=== PATIENT | female | born 1930 | race Caucasian/White ===

== ENCOUNTER 2017-06-25 16:10 | Emergency (ER) | payer MEDICARE, OTHER ==
[~2017-06-25] VITALS: Ht 157.5 cm; Wt 72.6 kg
[2017-06-25] MEDS ORDERED: Bystolic10 MG PO (16:38)
[2017-06-25] MEDS ORDERED: Amaryl4 MG PO (16:39)
[2017-06-25] MEDS ORDERED: Crestor40 MG PO (16:39)
[2017-06-25] MEDS ORDERED: CILO100 PO (16:39)
[2017-06-25] MEDS ORDERED: Omeprazole20 M1 PO (16:40)
[2017-06-25] MEDS ORDERED: RAME8 PO (16:40)
[2017-06-25] MEDS ORDERED: AMLO10 PO (16:41)
[2017-06-25] MEDS ORDERED: INSULANPEN SC (16:41)
[2017-06-25] MEDS ORDERED: FURO20 PO (16:42)
[2017-06-25] MEDS ORDERED: Calcium + Vita1 EACH PO (16:42)
[2017-06-25] MEDS ORDERED: INVOKANA100 MG PO (16:42)
[2017-06-25] MEDS ORDERED: ASPI81CH PO (16:43)
[2017-06-25] MEDS ORDERED: ASCO500 PO (16:43)
[2017-06-25] MEDS ORDERED: Omega 3 1,0001 EACH PO (16:44)
[2017-06-25] MEDS ORDERED: Hair, Skin & N1 EACH PO (16:44)
[2017-06-25] MEDS ORDERED: FERSU220EL PO (16:45)
[2017-06-25] MEDS ORDERED: ERGO400 PO (16:46)
[2017-06-25 17:03] LABS: BASOPHILS ABSOLUTE AUTO 0.01 K/mm3 (0.00-0.23); BASOPHILS PERCENT AUTO 0 % (0-2); EOSINOPHILS PERCENT AUTO 5 % (0-6); Hematocrit 43.3 % (33.0-51.0); Hemoglobin 14.2 g/dL (11.5-16.0); IMMATURE GRAN ABSOLUTE AUTO 0.03 K/mm3 (0.00-0.10); IMMATURE GRAN PERCENT AUTO 1 % (0-1); LYMPHOCYTES ABSOLUTE AUTO 0.75 K/mm3 (0.84-5.20); LYMPHOCYTES PERCENT AUTO 17 % (21-46); MONOCYTES ABSOLUTE AUTO 0.47 K/mm3 (0.16-1.47); MONOCYTES PERCENT AUTO 11 % (4-13); Mean Corpuscular HGB 29.6 pg (26.0-34.0); Mean Corpuscular HGB Conc 32.8 g/dL (31.5-36.5); Mean Corpuscular Volume 90 fL (80-100); Mean Platelet Volume 10.2 fL (9.1-12.4); NEUTROPHILS ABSOLUTE AUTO 2.99 K/mm3 (1.96-9.15); NEUTROPHILS PERCENT AUTO 67 % (41-73); Platelet Count 114 K/mm3 (150-400); RDW Coefficient Variation 13.8 % (11.7-14.2); RDW Standard Deviation 46.1 fL (35.1-46.3); White Blood Cell Count 4.45 K/mm3 (4.00-11.30)
[2017-06-25 17:18] LABS: Source, Urine Clean Catch
[2017-06-25 17:21] LABS: Appearance, Urine Clear (Clear); Bilirubin, Urine Neg (Neg); Blood, Urine 1+ (Neg); Color, Urine Yellow (P-Yellow); Glucose Qualitative, Urine 2+ (Neg); Ketones, Urine Neg (Neg); Leukocyte Esterase, Urine Neg (Neg); Nitrite, Urine Neg (Neg); Protein, Urine 1+ (Neg); Urobilinogen, Urine NORM (Normal)
[2017-06-25 17:24] LABS: Alanine Aminotransfer (ALT/SGP 26 U/L (12-78); Albumin, Blood 3.1 g/dL (3.4-5.0); Albumin/Globulin Ratio 0.9 (0.8-1.8); Alk Phos 82 U/L (50-136); Anion Gap 11 mmol/L (6-16); Aspartate Aminotrans (AST/SGOT 28 U/L (12-37); Bilirubin, Total 0.7 mg/dL (0.1-1.0); Blood Urea Nitrogen 31 mg/dL (8-24); Bun/Creatinine Ratio 15.7 (12.0-20.0); CO2, Blood 23 mmol/L (21-32); Calcium, Blood 9.3 mg/dL (8.5-10.1); Chloride, Blood 100 mmol/L (98-108); Creatinine, Blood 1.97 mg/dL (0.40-1.00); Globulin, Blood 3.6 g/dL (2.2-4.0); Glomerular Filtration Rate 26 (60-); Glucose, Blood 84 mg/dL (70-99); Potassium, Blood 3.9 mmol/L (3.5-5.5); Sodium, Blood 134 mmol/L (136-145); Total Protein, Blood 6.7 g/dL (6.4-8.2); Troponin I <0.015 ng/mL (0.000-0.040)
[2017-06-25 17:39] LABS: Bacteria Few /hpf; Red Blood Cells, Urine 0-2 /hpf (0-2); Squamous Epithelial Cells Rare /hpf (Few); White Blood Cells, Urine 0-2 /hpf (0-5)
[2017-06-25 17:41] LABS: Influenza A Negative (NEGATIVE); Influenza B Negative (NEGATIVE)
[2017-06-25] MEDS ORDERED: LEVFLO500 PO (19:03)
[2018-04-22] MEDS ORDERED: CALCIUM + D3 E1 EACH PO (16:03)
[2018-04-22] MEDS ORDERED: Crestor40 MG PO (16:03)
[2018-04-22] MEDS ORDERED: CILO100 PO (16:03)
[2018-04-22] MEDS ORDERED: Flonase 0.05% N16 GM (16:04)
[2018-04-22] MEDS ORDERED: INVOKANA100 MG PO (16:04)
[2018-04-22] MEDS ORDERED: INSULANPEN SC (16:05)
[2018-04-22] MEDS ORDERED: Omeprazole20 M1 PO ×2 (16:05)
[2018-04-22] MEDS ORDERED: OMEG1CAP30 PO (16:06)
[2018-04-22] MEDS ORDERED: Fruity C250 MG PO (16:06)
[2018-04-22] MEDS ORDERED: RAME8 PO (16:06)
[2018-04-22] MEDS ORDERED: Vitamin D2000 UNIT PO (16:07)
[2018-04-22] MEDS ORDERED: LOSA50 PO (16:07)
[2018-04-22] MEDS ORDERED: FERROUS SULFAT140 MG PO (16:07)
[2018-04-22] MEDS ORDERED: METO25 PO (16:08)
[2018-04-22] MEDS ORDERED: AMLO10 PO (16:08)
[2018-04-22] MEDS ORDERED: ELIQUIS5 MG PO (16:08)
== END 2017-06-25 19:29 | disposition home or self-care (01) ==
LOC: ER 16:10
PROVIDERS: Emergency Medicine; Psychiatry & Neurology Psychiatry
DX: J18.9 Pneumonia, unspecified organism (principal); E11.9 Type 2 diabetes mellitus without complications; Z87.891 Personal history of nicotine dependence; Z88.5 Allergy status to narcotic agent; Z79.899 Other long term (current) drug therapy; Z79.4 Long term (current) use of insulin; Z79.82 Long term (current) use of aspirin
CPT/HCPCS: 36415; 71046; 80053; 81001; 82947; 84484; 85025; 87804; 93005; 93010; 99284

== ENCOUNTER 2017-06-29 10:45 | Inpatient (IN) | payer MEDICARE, OTHER ==
[~2017-06-29] VITALS: Ht 157.5 cm; Wt 73.6 kg
[~2017-06-29 10:45] MED LIST: AMLO10 PO; ASCO500 PO; ASPI81CH PO; Amaryl4 MG PO; Bystolic10 MG PO; CILO100 PO; Calcium + Vita1 EACH PO; Crestor40 MG PO; ERGO400 PO; FERSU220EL PO; FURO20 PO; Hair, Skin & N1 EACH PO; INSULANPEN SC; INVOKANA100 MG PO; LEVFLO500 PO; Omega 3 1,0001 EACH PO; Omeprazole20 M1 PO; RAME8 PO
[2017-06-29 11:32] LABS: BASOPHILS ABSOLUTE AUTO 0.02 K/mm3 (0.00-0.23); BASOPHILS PERCENT AUTO 1 % (0-2); EOSINOPHILS ABSOLUTE AUTO 0.05 K/mm3 (0.00-0.68); EOSINOPHILS PERCENT AUTO 1 % (0-6); Hematocrit 48.4 % (33.0-51.0); Hemoglobin 16.3 g/dL (11.5-16.0); IMMATURE GRAN ABSOLUTE AUTO 0.03 K/mm3 (0.00-0.10); IMMATURE GRAN PERCENT AUTO 1 % (0-1); LYMPHOCYTES ABSOLUTE AUTO 0.97 K/mm3 (0.84-5.20); LYMPHOCYTES PERCENT AUTO 26 % (21-46); MONOCYTES ABSOLUTE AUTO 0.36 K/mm3 (0.16-1.47); MONOCYTES PERCENT AUTO 10 % (4-13); Mean Corpuscular HGB Conc 33.7 g/dL (31.5-36.5); Mean Corpuscular Volume 89 fL (80-100); Mean Platelet Volume 13.1 fL (9.1-12.4); NEUTROPHILS ABSOLUTE AUTO 2.32 K/mm3 (1.96-9.15); NEUTROPHILS PERCENT AUTO 62 % (41-73); RDW Coefficient Variation 14.1 % (11.7-14.2); RDW Standard Deviation 46.1 fL (35.1-46.3); Red Blood Cell Count 5.44 M/mm3 (3.80-5.20); White Blood Cell Count 3.75 K/mm3 (4.00-11.30)
[2017-06-29 11:34] LABS: Source, Urine Voided
[2017-06-29 11:41] LABS: Platelet Count 33 K/mm3 (150-400)
[2017-06-29 11:46] LABS: Bilirubin, Urine Neg (Neg); Blood, Urine 1+ (Neg); Glucose Qualitative, Urine 2+ (Neg); Ketones, Urine Neg (Neg); Leukocyte Esterase, Urine Neg (Neg); Nitrite, Urine Neg (Neg); Protein, Urine 2+ (Neg); Urobilinogen, Urine NORM (Normal)
[2017-06-29 11:46] LABS: Albumin, Blood 2.5 g/dL (3.4-5.0); Albumin/Globulin Ratio 0.7 (0.8-1.8); Bilirubin, Total 0.6 mg/dL (0.1-1.0); Calcium, Blood 8.1 mg/dL (8.5-10.1); Creatinine, Blood 2.5 mg/dL (0.40-1.00); Free Thyroxine 0.83 ng/dL (0.70-1.60); Globulin, Blood 3.5 g/dL (2.2-4.0); Magnesium, Blood 2.1 mg/dL (1.6-2.4); Potassium, Blood 4.4 mmol/L (3.5-5.5)
[2017-06-29 11:49] LABS: Thyroid Stimulating Hormone 1.98 uIU/mL (0.360-4.800)
[2017-06-29 11:58] LABS: Appearance, Urine Clear (Clear); Color, Urine Yellow (P-Yellow)
[2017-06-29 11:59] LABS: Amorphous Light (0-Heavy); White Blood Cells, Urine 0-2 /hpf (0-5)
[2017-06-29 12:00] LABS: Bacteria Few /hpf; Squamous Epithelial Cells Few /hpf (Few)
[2017-06-29] MEDS ORDERED: HYDCHL12.5 PO (13:50)
[2017-06-29] MEDS ORDERED: LOSARTAN POTAS100 MG PO (13:52)
[2017-06-29] MEDS ORDERED: Bactrim 400-801 EACH PO (13:54)
[2017-06-29 14:19] LABS: BASOPHILS ABSOLUTE AUTO 0.02 K/mm3 (0.00-0.23); BASOPHILS PERCENT AUTO 1 % (0-2); EOSINOPHILS ABSOLUTE AUTO 0.05 K/mm3 (0.00-0.68); EOSINOPHILS PERCENT AUTO 2 % (0-6); Hematocrit 46.5 % (33.0-51.0); IMMATURE GRAN ABSOLUTE AUTO 0.02 K/mm3 (0.00-0.10); IMMATURE GRAN PERCENT AUTO 1 % (0-1); LYMPHOCYTES ABSOLUTE AUTO 0.78 K/mm3 (0.84-5.20); LYMPHOCYTES PERCENT AUTO 25 % (21-46); MONOCYTES ABSOLUTE AUTO 0.26 K/mm3 (0.16-1.47); MONOCYTES PERCENT AUTO 9 % (4-13); Mean Corpuscular HGB Conc 34.4 g/dL (31.5-36.5); Mean Corpuscular Volume 87 fL (80-100); NEUTROPHILS ABSOLUTE AUTO 1.94 K/mm3 (1.96-9.15); NEUTROPHILS PERCENT AUTO 63 % (41-73); RDW Coefficient Variation 13.9 % (11.7-14.2); RDW Standard Deviation 44.1 fL (35.1-46.3); Red Blood Cell Count 5.33 M/mm3 (3.80-5.20); White Blood Cell Count 3.07 K/mm3 (4.00-11.30)
[2017-06-29 14:28] LABS: Platelet Count 33 K/mm3 (150-400)
[2017-06-29 16:15] LABS: Adenovirus Not Detected (NOT DETECT); Bordetella pertussis Not Detected (NOT DETECT); Chlamydophila pneumoniae Not Detected (NOT DETECT); Coronavirus 229E Not Detected (NOT DETECT); Coronavirus HKU1 Not Detected (NOT DETECT); Coronavirus NL63 Not Detected (NOT DETECT); Coronavirus OC43 Not Detected (NOT DETECT); Human Metapneumovirus Not Detected (NOT DETECT); Human Rhinovirus/Enterovirus Not Detected (NOT DETECT); Influenza A/2009-H1 Not Detected (NOT DETECT); Influenza A/H1 Not Detected (NOT DETECT); Influenza A/H3 Not Detected (NOT DETECT); Influenza B Not Detected (NOT DETECT); Mycoplasma pneumoniae Not Detected (NOT DETECT); Parainfluenza Virus 1 Not Detected (NOT DETECT); Parainfluenza Virus 2 Not Detected (NOT DETECT); Parainfluenza Virus 3 Not Detected (NOT DETECT); Parainfluenza Virus 4 Not Detected (NOT DETECT); Respiratory Syncytial Virus Not Detected (NOT DETECT)
[2017-06-29 16:58] LABS: Influenza A Negative (NEGATIVE); Influenza B Negative (NEGATIVE)
[2017-06-29 18:09] LABS: Influenza A Not Detected (NOT DETECT)
[2017-06-30 05:25] LABS: BASOPHILS ABSOLUTE AUTO 0.02 K/mm3 (0.00-0.23); BASOPHILS PERCENT AUTO 1 % (0-2); EOSINOPHILS ABSOLUTE AUTO 0.08 K/mm3 (0.00-0.68); EOSINOPHILS PERCENT AUTO 3 % (0-6); Hematocrit 42.6 % (33.0-51.0); Hemoglobin 14.3 g/dL (11.5-16.0); IMMATURE GRAN ABSOLUTE AUTO 0.02 K/mm3 (0.00-0.10); IMMATURE GRAN PERCENT AUTO 1 % (0-1); LYMPHOCYTES ABSOLUTE AUTO 0.67 K/mm3 (0.84-5.20); LYMPHOCYTES PERCENT AUTO 29 % (21-46); MONOCYTES ABSOLUTE AUTO 0.27 K/mm3 (0.16-1.47); MONOCYTES PERCENT AUTO 12 % (4-13); Mean Corpuscular HGB 29.7 pg (26.0-34.0); Mean Corpuscular HGB Conc 33.6 g/dL (31.5-36.5); Mean Corpuscular Volume 89 fL (80-100); NEUTROPHILS ABSOLUTE AUTO 1.29 K/mm3 (1.96-9.15); NEUTROPHILS PERCENT AUTO 55 % (41-73); RDW Coefficient Variation 14.1 % (11.7-14.2); RDW Standard Deviation 46.2 fL (35.1-46.3); Red Blood Cell Count 4.81 M/mm3 (3.80-5.20); White Blood Cell Count 2.35 K/mm3 (4.00-11.30)
[2017-06-30 05:30] LABS: Platelet Count 28 K/mm3 (150-400)
[2017-06-30 05:39] LABS: Albumin/Globulin Ratio 0.7 (0.8-1.8); Bilirubin, Total 0.6 mg/dL (0.1-1.0); Calcium, Blood 7.6 mg/dL (8.5-10.1); Creatinine, Blood 2.15 mg/dL (0.40-1.00); Globulin, Blood 2.9 g/dL (2.2-4.0); Potassium, Blood 4.1 mmol/L (3.5-5.5); Total Protein, Blood 4.9 g/dL (6.4-8.2)
[2017-07-01 05:05] LABS: Hematocrit 38.8 % (33.0-51.0); Hemoglobin 12.7 g/dL (11.5-16.0); Mean Corpuscular HGB 29.3 pg (26.0-34.0); Mean Corpuscular HGB Conc 32.7 g/dL (31.5-36.5); Mean Corpuscular Volume 90 fL (80-100); Mean Platelet Volume 12.2 fL (9.1-12.4); RDW Coefficient Variation 14.2 % (11.7-14.2); RDW Standard Deviation 47.4 fL (35.1-46.3); Red Blood Cell Count 4.33 M/mm3 (3.80-5.20); White Blood Cell Count 2.44 K/mm3 (4.00-11.30)
[2017-07-01 05:19] LABS: Anion Gap 11 mmol/L (6-16); Blood Urea Nitrogen 45 mg/dL (8-24); Bun/Creatinine Ratio 25.3 (12.0-20.0); CO2, Blood 18 mmol/L (21-32); Calcium, Blood 7.8 mg/dL (8.5-10.1); Chloride, Blood 112 mmol/L (98-108); Creatinine, Blood 1.78 mg/dL (0.40-1.00); Glomerular Filtration Rate 29 (60-); Glucose, Blood 134 mg/dL (70-99); Magnesium, Blood 2.2 mg/dL (1.6-2.4); Phosphorus, Blood 2.1 mg/dL (2.5-4.9); Potassium, Blood 3.7 mmol/L (3.5-5.5); Sodium, Blood 141 mmol/L (136-145)
[2017-07-01 05:30] LABS: Platelet Count 43 K/mm3 (150-400)
[2017-07-01 06:16] LABS: BAND PERCENT MAN 1 % (0-8); BASOPHILS PERCENT MAN 0 % (0-2); EOSINOPHILS ABSOLUTE MAN 0.12 K/mm3 (0.00-0.68); EOSINOPHILS PERCENT MAN 5 % (0-6); LYMPHOCYTES % ATYPICAL MANUAL 2 % (0-0); LYMPHOCYTES ABSOLUTE MAN 0.87 K/mm3 (0.84-5.20); LYMPHOCYTES PERCENT MAN 34 % (21-46); MONOCYTES ABSOLUTE MAN 0.24 K/mm3 (0.16-1.47); MONOCYTES PERCENT MAN 10 % (4-13); NEUTROPHILS ABSOLUTE MAN 1.19 K/mm3 (1.96-9.15); SEG NEUTROPHILS PERCENT MAN 48 % (41-73); TOTAL CELLS COUNTED 100
[2017-07-02 05:16] LABS: BASOPHILS ABSOLUTE AUTO 0.01 K/mm3 (0.00-0.23); BASOPHILS PERCENT AUTO 0 % (0-2); EOSINOPHILS ABSOLUTE AUTO 0.05 K/mm3 (0.00-0.68); EOSINOPHILS PERCENT AUTO 2 % (0-6); Hematocrit 38.8 % (33.0-51.0); Hemoglobin 12.7 g/dL (11.5-16.0); IMMATURE GRAN ABSOLUTE AUTO 0.03 K/mm3 (0.00-0.10); IMMATURE GRAN PERCENT AUTO 1 % (0-1); LYMPHOCYTES ABSOLUTE AUTO 1.26 K/mm3 (0.84-5.20); LYMPHOCYTES PERCENT AUTO 46 % (21-46); MONOCYTES ABSOLUTE AUTO 0.34 K/mm3 (0.16-1.47); MONOCYTES PERCENT AUTO 12 % (4-13); Mean Corpuscular HGB 29.1 pg (26.0-34.0); Mean Corpuscular HGB Conc 32.7 g/dL (31.5-36.5); Mean Corpuscular Volume 89 fL (80-100); Mean Platelet Volume 11.2 fL (9.1-12.4); NEUTROPHILS ABSOLUTE AUTO 1.06 K/mm3 (1.96-9.15); NEUTROPHILS PERCENT AUTO 39 % (41-73); Platelet Count 71 K/mm3 (150-400); RDW Coefficient Variation 14.2 % (11.7-14.2); RDW Standard Deviation 46.7 fL (35.1-46.3); Red Blood Cell Count 4.37 M/mm3 (3.80-5.20); White Blood Cell Count 2.75 K/mm3 (4.00-11.30)
[2017-07-02 05:42] LABS: Bun/Creatinine Ratio 23.4 (12.0-20.0); Calcium, Blood 8.2 mg/dL (8.5-10.1); Creatinine, Blood 1.24 mg/dL (0.40-1.00); Magnesium, Blood 1.7 mg/dL (1.6-2.4); Potassium, Blood 3.5 mmol/L (3.5-5.5)
[2017-07-02] MEDS ORDERED: Lopressor 25 mg25 MG PO (10:20)
[2017-07-02] MEDS ORDERED: LOSA25 PO (10:27)
[2017-07-02] MEDS ORDERED: LEVFLO500 PO (10:28)
[2018-04-22] MEDS ORDERED: CILO100 PO (16:03)
[2018-04-22] MEDS ORDERED: Crestor40 MG PO (16:03)
[2018-04-22] MEDS ORDERED: CALCIUM + D3 E1 EACH PO (16:03)
[2018-04-22] MEDS ORDERED: INVOKANA100 MG PO (16:04)
[2018-04-22] MEDS ORDERED: Flonase 0.05% N16 GM (16:04)
[2018-04-22] MEDS ORDERED: Omeprazole20 M1 PO ×2 (16:05)
[2018-04-22] MEDS ORDERED: INSULANPEN SC (16:05)
[2018-04-22] MEDS ORDERED: RAME8 PO (16:06)
[2018-04-22] MEDS ORDERED: OMEG1CAP30 PO (16:06)
[2018-04-22] MEDS ORDERED: Fruity C250 MG PO (16:06)
[2018-04-22] MEDS ORDERED: Vitamin D2000 UNIT PO (16:07)
[2018-04-22] MEDS ORDERED: FERROUS SULFAT140 MG PO (16:07)
[2018-04-22] MEDS ORDERED: LOSA50 PO (16:07)
[2018-04-22] MEDS ORDERED: AMLO10 PO (16:08)
[2018-04-22] MEDS ORDERED: ELIQUIS5 MG PO (16:08)
[2018-04-22] MEDS ORDERED: METO25 PO (16:08)
== END 2017-07-02 12:30 | disposition home or self-care (01) | DRG 683 ==
LOC: ER 10:45 → MEDS 13:33 → ENPENDDIS 07-02 10:12 → MEDS 07-02 12:30
PROVIDERS: Emergency Medicine; Internal Medicine
PROC: 3E0234Z Introduction of Serum, Toxoid and Vaccine into Muscle, Percutaneous Approach (ICD-10-PCS; principal; 2017-06-29)
DX: N17.0 Acute kidney failure with tubular necrosis (principal); E87.1 Hypo-osmolality and hyponatremia; D69.6 Thrombocytopenia, unspecified; E11.51 Type 2 diabetes mellitus with diabetic peripheral angiopathy without gangrene; E11.22 Type 2 diabetes mellitus with diabetic chronic kidney disease; I48.91 Unspecified atrial fibrillation; E86.0 Dehydration; I35.0 Nonrheumatic aortic (valve) stenosis; I12.9 Hypertensive chronic kidney disease with stage 1 through stage 4 chronic kidney disease, or unspecified chronic kidney disease; N18.3 Chronic kidney disease, stage 3 (moderate); Z23 Encounter for immunization
CPT/HCPCS: 36415; 71046; 80048; 80053; 80069; 81001; 82947; 83735; 84145; 84439; 84443; 85025; 85060; 87040; 87486; 87581; 87633; 87798; 87804; 93005; 93010; 94760; 96361; 96365; 96375; 97116; 97162; 99285; C9113; G8978; G8979; J0610; J1815; J1956; J7030; J7060; J7120; P9612

== ENCOUNTER 2018-04-28 08:57 | Day surgery (SDC) | payer MEDICARE, OTHER ==
[~2018-04-28] VITALS: Ht 160 cm; Wt 68.4 kg
[~2018-04-28 08:57] MED LIST changes: +Bactrim 400-801 EACH PO; +CALCIUM + D3 E1 EACH PO; +ELIQUIS5 MG PO; +FERROUS SULFAT140 MG PO; +Flonase 0.05% N16 GM; +Fruity C250 MG PO; +HYDCHL12.5 PO; +LOSA25 PO; +LOSA50 PO; +LOSARTAN POTAS100 MG PO; +Lopressor 25 mg25 MG PO; +METO25 PO; +OMEG1CAP30 PO; +Vitamin D2000 UNIT PO
[2018-04-28] MEDS ORDERED: Hair, Skin & N1 EACH PO (09:26)
[2018-04-28] MEDS ORDERED: CALCIUM 500 +1 EAC2 PO (09:27)
== END 2018-04-28 11:10 | disposition home or self-care (01) ==
LOC: ORSCSDS 08:57
PROVIDERS: Ophthalmology
PROC: 08RJ3JZ Replacement of Right Lens with Synthetic Substitute, Percutaneous Approach (ICD-10-PCS; principal; 2018-04-28 10:30)
DX: H25.11 Age-related nuclear cataract, right eye (principal); E11.36 Type 2 diabetes mellitus with diabetic cataract; K21.9 Gastro-esophageal reflux disease without esophagitis; I10 Essential (primary) hypertension; Z87.891 Personal history of nicotine dependence; Z79.01 Long term (current) use of anticoagulants; Z79.4 Long term (current) use of insulin; Z79.899 Other long term (current) drug therapy
CPT/HCPCS: 82947; J2001; J2250; J3010; J3301; V2632

== ENCOUNTER 2020-09-18 10:02 | Emergency (ER) | payer MEDICARE, OTHER ==
[~2020-09-18] VITALS: Ht 157.5 cm; Wt 63.0 kg
[~2020-09-18 10:02] MED LIST changes: +CALCIUM 500 +1 EAC2 PO; +POTA10T PO; +TORS10 PO
[2020-09-18] MEDS ORDERED: Vibramycin100 MG PO (11:32)
[2020-09-18] MEDS ORDERED: Voltaren100 GM TOP (11:32)
== END 2020-09-18 12:00 | disposition home or self-care (01) ==
LOC: ER 10:02
DX: L03.116 Cellulitis of left lower limb (principal); S80.12XA Contusion of left lower leg, initial encounter; E11.9 Type 2 diabetes mellitus without complications; Z79.01 Long term (current) use of anticoagulants; Z87.891 Personal history of nicotine dependence; Z79.4 Long term (current) use of insulin; X58.XXXA Exposure to other specified factors, initial encounter
CPT/HCPCS: 99283